=== PATIENT | male | born 1960 | race Caucasian/White ===

== ENCOUNTER 2017-05-19 12:50 | Observation (INO) | payer BC ==
[~2017-05-19 12:50] MED LIST: CLINDAMYCIN 900 MG in DEXTROSE 5% IN WATER 50 ML IVPB ONE; DEXAMETHASONE SOD PHOSPHATE 10 MG/ML 1 ML VIAL IV ONE; HYDROmorphone 1 MG/ML 1 ML SYRINGE IVP PRN; LIDOCAINE 1% 20 ML VIAL (10MG/ML) FOR IV START INTRADERMA PRN; MIDAZOLAM 2 MG/2 ML VIAL IV PRN; ONDANSETRON 4 MG/2 ML VIAL IVP ONE; SCOPOLAMINE 1.5MG/72HR PATCH TRANSDERM ONE
[2017-05-19] MEDS: LACTATED RINGERS 1,000 ML IV SCH ×2 (13:11→23:40)
[2017-05-19] MEDS ORDERED: HYDROcodone/APAP 5-325MG 1 EACH TAB PO PRN ×2 (14:00)
[2017-05-19] MEDS ORDERED: hydrOXYzine PAMOATE 25 MG CAP PO PRN ×2 (14:00)
[2017-05-19] MEDS ORDERED: HYDROmorphone 1 MG/ML 1 ML SYRINGE IVP PRN ×2 (14:00)
[2017-05-19] MEDS ORDERED: ONDANSETRON 4 MG/2 ML VIAL IVP PRN (14:00)
[2017-05-19] MEDS ORDERED: SENNOSIDES-DOCUSATE SODIUM 1 EACH TAB PO PRN (14:00)
[2017-05-19] MEDS ORDERED: SUCCINYLCHOLINE CHLORIDE 100 MG/5 ML SYR IV ONE (14:43)
[2017-05-19] MEDS ORDERED: LIDOCAINE 1% INJ 10MG/ML (20 ML MDV) ONE (14:43)
[2017-05-19] MEDS ORDERED: PROPOFOL 10 MG/ML 20 ML VIAL IV ONE (14:43)
[2017-05-19] MEDS ORDERED: KETOROLAC 30 MG/ML 1 ML VIAL ONE (14:43)
[2017-05-19] MEDS ORDERED: fentaNYL (PF) 50 MCG/ML 2 ML AMP ONE (14:43)
[2017-05-19] MEDS ORDERED: MIDAZOLAM 2 MG/2 ML VIAL ONE (14:43)
[2017-05-19] MEDS ORDERED: LACTATED RINGERS 1,000 ML IV ONE (16:38)
[2017-05-19 18:13] VITALS: BMI 27.2
[2017-05-19] MEDS: HYDROmorphone 1 MG/ML 1 ML SYRINGE IVP PRN ×3 (19:22→23:45)
[2017-05-19] MEDS ORDERED: HYDROcodone/APAP 7.5-325MG 1 EACH TAB PO PRN (21:42)
[2017-05-19] MEDS: CLINDAMYCIN 900 MG in DEXTROSE 5% IN WATER 50 ML IVPB SCH ×2 (23:36)
[2017-05-20] MEDS: HYDROcodone/APAP 7.5-325MG 1 EACH TAB PO PRN ×4 (00:44→14:35)
[2017-05-20 08:06] VITALS: PULSE 65; RESP 18
[2017-05-20] MEDS: CLINDAMYCIN 900 MG in DEXTROSE 5% IN WATER 50 ML IVPB SCH ×2 (08:06)
[2017-05-20 08:13] VITALS: BP 122/79; TEMP 98.2
--- NOTE | 2017-05-20 08:59 | P.DS ---
Providers Date of admission: 05/20/17 03:12 Expected date of discharge: 05/20/17 Attending physician: Ty Cleaning Primary care physician: [facility] Course: This is a 56-year-old male with known history of torn rotator cuff to the left shoulder. The patient presents for evaluation. After discussion and consideration patient elects to proceed with acromioplasty excision distal clavicle repair rotator cuff left shoulder. The patient is seen preoperatively by Hermila and cleared for surgery. Patient is admitted to [facility] on 05/20/2017 for acromioplasty excision distal clavicle repair rotator cuff left shoulder. The procedures performed without complication or sequelae. The patient is doing well postoperatively. Labs and vital signs are stable on day of discharge. On day of discharge patient's shoulder is healing well. There is minimal erythema. There is no drainage noted at this time. There is minimal soft tissue swelling to the shoulder. Patient has full hand and wrist motion without difficulty or pain. Neurovascular status to the left upper extremity. Patient is discharged home in good condition. Please see med rec for accurate list of home medications. Plan - Discharge Summary New Discharge Prescriptions: New HYDROcodone/APAP 7.5-325MG [[place] 7.5-325] 1 - 2 tab PO Q4-6H PRN #60 tab PRN Reason: Pain Sennosides-Docusate Sodium [Senokot-S] 1 tab PO BID #60 tablet Discharge Medication List HYDROcodone/APAP 7.5-325MG [[place] 7.5-325] 1 - 2 tab PO Q4-6H PRN #60 tab [Rx] Sennosides-Docusate Sodium [Senokot-S] 1 tab PO BID #60 tablet 05/20/17 [Rx] Follow up Appointment(s)/Referral(s): Ty Cleaning DO [Doctor of Osteopathic Medicine] - 10 Days Activity/Diet/Wound Care/Special Instructions: Maintain sling for comfort Discharge Disposition: HOME SELF-CARE
--- NOTE | 2017-05-22 13:50 | OP ---
DATE OF SURGERY: 05/19/2017 SURGEON: LIDYA VIEIRA DO STORAGE ADMINISTRATOR: NONE PREOPERATIVE DIAGNOSIS: Torn left rotator cuff. POSTOPERATIVE DIAGNOSIS: Torn left rotator cuff OPERATION: Resection of the distal left clavicle, decompression acromioplasty , left rotator cuff repair utilizing Arthrex bioabsorbable anchor. ANESTHESIA: ESTIMATED BLOOD LOSS: SPECIMENS REMOVED: COMPLICATIONS: DESCRIPTION OF PROCEDURE: The patient was taken to the operative suite and placed in supine position. General inhalation anesthesia was performed by the Department of Anesthesiology in the preoperative area. The patient was placed in beach chair position, padded and secured. Betadine prep was carried out over the left shoulder and sterile drapes applied in the usual manner. An anterolateral incision was carried out over the anterolateral border of the distal acromion. Sharp dissection through the subcutaneous tissue was performed. The superior clavicle ligament was identified and dissected. The distal 1 cm of the clavicle was excised with bone saw. The anterior deltoid muscle was dissected along the anterolateral border. Decompression acromioplasty was performed. A tear of the left rotator cuff was visualized. The acromial under surface od the acromion was smoothed with a bone awl. The Arthrex 5.5 anchor screw was then prepared with bone awl for positioning and the bone tapped. The final 5.5 screw is inserted and secured. Rotator cuff is repaired. The area was irrigated copiously. The deltoid was then reapproximated back into the acromion with #1 Ethibond suture. The deep fascia was approximated with #1 Vicryl suture. Subcutaneous tissue approximated with 2-0 Vicryl suture and 3-0 Quill suture in a subcuticular fashion. Dermabond was applied sealing the wound. Sterile dressings were applied. The patient was placed in an abductor pillow splint and transferred to the recovery room in satisfactory postop condition. GROSS PATHOLOGY: There is evidence of complete rupture with an acute appearance of the supraspinatus, infraspinatus tendon, rotator cuff tendon tear. [facility]
== END 2017-05-20 16:47 | disposition home or self-care (01) ==
LOC: OR 12:50 → 3SUR 16:08 → OR 05-20 03:12 → 3SUR 05-20 03:12
PROVIDERS: ADMIT Orthopaedic Surgery; ATTEND Orthopaedic Surgery
DX: M75.122 Complete rotator cuff tear or rupture of left shoulder, not specified as traumatic (principal); M75.42 Impingement syndrome of left shoulder; Z82.49 Family history of ischemic heart disease and other diseases of the circulatory system; Z88.0 Allergy status to penicillin
CPT/HCPCS: 23412; 23130; G0378; C1713; J2250; J1100; J2405; J2001; J3010; J1885; J1170; J0330; J2704

== ENCOUNTER → 2017-07-27 | Outpatient (CLI) | payer BC ==
[2017-07-27 17:46] LABS: CH 30.5; CHCM 33.7; HCT 46.3 % (39.0-53.0); HDW 2.72; HGB 15.3 gm/dL (13.0-17.5); MCV 90.9 fL (80.0-100.0); Mean Platelet Volume 6.8; RBC 5.09 m/uL (4.30-5.90); RDW 13.3 % (11.5-15.5); WBC 5.6 k/uL (3.8-10.6)
[2017-07-27 17:52] LABS: Rheumatoid Factor, Qnt <9 IU/mL (<12)
[2017-07-27 17:53] LABS: C Reactive Protein 13.3 mg/L (<10.0)
[2017-07-27 19:46] LABS: Erythrocyte Sedimentation Rate 25 mm/hr (0-15)
[2017-07-28 01:26] LABS: ANA w/Reflex to Titer NEGATIVE (NEGATIVE)
[2017-07-29 12:46] LABS: HLA B27 NEGATIVE; HLA B27 Comment SEEBELOW
[2017-07-30 14:08] LABS: Lyme IgG/IgM 0.1 Index; Lyme IgG/IgM Interp NEGATIVE (NEGATIVE)
== END | disposition home or self-care (01) ==
LOC: LABWHC1 16:51
PROVIDERS: ATTEND Orthopaedic Surgery
DX: Z48.89 Encounter for other specified surgical aftercare (principal); M65.88 Other synovitis and tenosynovitis, other site; M25.532 Pain in left wrist; M25.512 Pain in left shoulder; Z98.890 Other specified postprocedural states
CPT/HCPCS: 36415; 84443; 85027; 85652; 86038; 86060; 86140; 86431; 86618; 86812

== ENCOUNTER → 2017-08-18 | Outpatient (CLI) | payer BC ==
[2017-08-18 09:06] LABS: Blood Urea Nitrogen 11 mg/dL (9-20); Non-African American GFR(MDRD) >60 (>60 ml/min/1.73 sqM); Uric Acid 5.6 mg/dL (3.5-8.5)
== END | disposition home or self-care (01) ==
LOC: LABWHC1 07:43
PROVIDERS: ATTEND Orthopaedic Surgery
DX: Z48.89 Encounter for other specified surgical aftercare (principal); M25.512 Pain in left shoulder; M25.532 Pain in left wrist; M65.88 Other synovitis and tenosynovitis, other site; Z98.890 Other specified postprocedural states; M77.8 Other enthesopathies, not elsewhere classified
CPT/HCPCS: 36415; 82565; 84520; 84550

== ENCOUNTER → 2017-12-30 | Outpatient (CLI) | payer BC ==
--- NOTE | 2017-12-30 20:09 | EEG ---
ELECTROENCEPHALOGRAM REPORT REFERRING PHYSICIAN: Dr. Gonzalez. CONSULTING AND INTERPRETING PHYSICIAN: Dr. Rory Cash INDICATION FOR EXAMINATION: This patient is a 57-year-old male being evaluated for generalized fatigue and headaches in the occipital region. The patient also has remote history of recurrent syncope. AGE: 57. EEG FINDINGS: A routine 21-channel awake digital EEG recording was accomplished utilizing the 10-20 international system with bipolar and referential montages. The background activity in the most alert resting state consists of a low to medium amplitude, fairly well- developed and well-sustained 8 Hz activity over the posterior head regions. This posterior rhythm attenuates to eye opening. There is a small amount of low amplitude 18-20 Hz beta activity seen maximally over the anterior head regions. Muscle and movement artifact was observed on a few occasions during the tracing. Hyperventilation was not performed. Photic stimulation at flash frequencies of 2-30 Hz produced a good symmetrical occipital driving response. No epileptiform discharges were seen. IMPRESSION: This EEG is normal for the patient's age. The EEG failed to reveal any focal, lateralized or epileptiform abnormalities. Clinical correlation is recommended. MMODL / IJN: [id number] /
== END ==
LOC: NEUROMAIN 12:57
PROVIDERS: ATTEND Internal Medicine
DX: R55 Syncope and collapse (principal)
CPT/HCPCS: 95816

== ENCOUNTER → 2018-01-27 | Outpatient (CLI) | payer BC ==
--- NOTE | 2018-01-28 10:43 | NM ---
EXAMINATION TYPE: NM hepatobiliary w EF DATE OF EXAM: 01/27/2018 COMPARISON: Ultrasound dated 10/25/2017 HISTORY: Left-sided abdominal pain with disease of the biliary tract. TECHNIQUE: After the intravenous administration of 5.2 mCi Tc 99m Mebrofenin hepatobiliary scintigrap hy is performed. Immediate images post injection. FINDINGS: There is satisfactory initial accumulation of tracer by the liver. The gallbladder is visualized wit hin 10 minutes. The small bowel activity is noted within 42 minutes. At one hour 8 ounces of oral e nsure plus is given to mimic CCK and gallbladder ejection fraction is calculated at 70 %, in the norm al range. Therefore there is no scintigraphic evidence of cystic or common bile duct obstruction to suggest acute cholecystitis or gallbladder dyskinesia. Enterogastric reflux is incidentally noted on the delayed image demonstrating the ejection fraction. IMPRESSION: 1. No scintigraphic findings of acute cholecystitis, chronic cholecystitis, or biliary dyskinesia. 2. Enterogastric reflux on a single image, which could account for the patient's abdominal pain.
== END | disposition home or self-care (01) ==
LOC: RADNMMAIN 14:45
PROVIDERS: ATTEND Internal Medicine
DX: K83.9 Disease of biliary tract, unspecified (principal)
CPT/HCPCS: 78226; A9537

== ENCOUNTER → 2018-02-01 | Outpatient (CLI) | payer BC ==
--- NOTE | 2018-02-01 18:29 | CT ---
EXAMINATION TYPE: CT abdomen w con DATE OF EXAM: 02/01/2018 COMPARISON: NONE HISTORY: Abdominal pain, elevated pancreatic levels. CT DLP: 1166 mGycm Automated exposure control for dose reduction was used. TECHNIQUE: Helical acquisition of images was performed from the lung bases through the top of iliac crest to include entire abdomen. CONTRAST: Performed with Oral Contrast and with IV Contrast, patient injected with 100 mL of Omnipaque 300. FINDINGS: The lung bases are clear. There is no pleural effusion. Heart size is normal. There is no pericardial effusion. Liver and spleen appear normal. Bile ducts are not dilated. Gallbladder appears normal. Pancreas appe ars normal. Pancreatic duct appears normal. There is no adrenal mass. Kidneys show satisfactory contrast opacification. There is no hydronephrosi s. Ureters are not dilated. There is no retroperitoneal adenopathy. I see no intestinal wall thickeni ng. There are no dilated loops. Appendix appears normal. I see no bony destructive process. Lumbar sp ine is intact. There is ankylotic change in the lower thoracic spine. Sacroiliac joints are intact. T here is no sign of free air. There is no sign of ascites. IMPRESSION: NEGATIVE CT SCAN OF THE ABDOMEN. NO EVIDENCE OF PANCREATIC ABNORMALITY. THERE IS SOME ANKYLOTIC CHANGE IN THE LOWER THORACIC SPINE AT MAY RELATE TO ANKYLOSING SPONDYLITIS.
== END | disposition home or self-care (01) ==
LOC: RADCTMAIN 15:51
PROVIDERS: ATTEND Internal Medicine Rheumatology
DX: K85.90 Acute pancreatitis without necrosis or infection, unspecified (principal)
CPT/HCPCS: 74160; Q9967

== ENCOUNTER → 2018-05-10 | Outpatient (CLI) | payer BC ==
[2018-05-10 16:40] LABS: Anion Gap 11 mmol/L; Blood Urea Nitrogen 13 mg/dL (9-20); Carbon Dioxide 30 mmol/L (22-30); Chloride 100 mmol/L (98-107); Potassium 4.5 mmol/L (3.5-5.1); Sodium 141 mmol/L (137-145)
[2018-05-10 16:52] LABS: HCT 42.8 % (39.0-53.0); HGB 14.6 gm/dL (13.0-17.5); Mean Platelet Volume 6.8; Platelet Count 236 k/uL (150-450); WBC 4.9 k/uL (3.8-10.6)
== END | disposition home or self-care (01) ==
LOC: LABPAT 15:48
PROVIDERS: ATTEND Internal Medicine Cardiovascular Disease
DX: Z01.812 Encounter for preprocedural laboratory examination (principal); R07.9 Chest pain, unspecified
CPT/HCPCS: 36415; 80051; 82565; 84520; 85027

== ENCOUNTER 2018-05-12 07:46 | Day surgery (SDC) | payer BC ==
[2018-05-10 15:11] VITALS: BMI 26.9
[~2018-05-12 07:46] MED LIST changes: +ALPRAZolam 0.25 MG TAB PO PRN; +ALPRAZolam 0.5 MG TAB PO PRN; +ASPIRIN 325 MG TAB PO STA; +ATORVASTATIN 80 MG TAB PO STA; -CLINDAMYCIN 900 MG in DEXTROSE 5% IN WATER 50 ML IVPB ONE; -DEXAMETHASONE SOD PHOSPHATE 10 MG/ML 1 ML VIAL IV ONE; -HYDROmorphone 1 MG/ML 1 ML SYRINGE IVP PRN; -LIDOCAINE 1% 20 ML VIAL (10MG/ML) FOR IV START INTRADERMA PRN; -MIDAZOLAM 2 MG/2 ML VIAL IV PRN; +NITROGLYCERIN SL TABS 0.4 MG TAB SUBLINGUAL PRN; -ONDANSETRON 4 MG/2 ML VIAL IVP ONE; -SCOPOLAMINE 1.5MG/72HR PATCH TRANSDERM ONE; +SODIUM CHLORIDE 0.9% 1,000 ML in EMPTY BAG 1 BAG IV ONE
[2018-05-12 08:41] VITALS: RESP 16; TEMP 97.8
[2018-05-12] MEDS ORDERED: SODIUM CHLORIDE 0.9% 1,000 ML IV ONE (08:42)
[2018-05-12] MEDS ORDERED: VERAPAMIL 2.5 MG/ML 2 ML AMP ONE (08:48)
[2018-05-12] MEDS ORDERED: MIDAZOLAM 2 MG/2 ML VIAL ONE (08:48)
[2018-05-12] MEDS ORDERED: HEPARIN SODIUM 1,000 UN/ML (10ML VL) ONE (08:48)
[2018-05-12] MEDS ORDERED: fentaNYL (PF) 50 MCG/ML 2 ML AMP ONE (08:48)
[2018-05-12] MEDS ORDERED: MIDAZOLAM 2 MG/2 ML VIAL IVP ONE (09:10)
[2018-05-12] MEDS ORDERED: fentaNYL (PF) 50 MCG/ML 2 ML AMP IV ONE (09:10)
[2018-05-12] MEDS ORDERED: LIDOCAINE 2% INJ 20 MG/ML SQ ONE (09:15)
[2018-05-12] MEDS: VERAPAMIL SYRINGE (5 MG/10 ML) INTRAARTER ONE ×2 (09:16→09:38)
[2018-05-12] MEDS ORDERED: VERAPAMIL SYRINGE (5 MG/10 ML) INTRAARTER ONE (09:18)
[2018-05-12] MEDS ORDERED: HEPARIN SODIUM 1,000 UN/ML (10ML VL) IV ONE (09:19)
[2018-05-12] MEDS ORDERED: IOPAMIDOL-370 125ML BTL INJ ONE (09:29)
[2018-05-12] MEDS ORDERED: RX INFO: IV CONTRAST WAS GIVEN 1 EACH MISC MISCELLANE PRN (09:38)
[2018-05-12] MEDS ORDERED: SODIUM CHLORIDE 0.9% 1,000 ML IV SCH (09:45)
--- NOTE | 2018-05-12 09:52 | P.CARDCATH ---
Date of Procedure: 05/12/18 Preoperative Diagnosis: Chest pain and positive stress test Postoperative Diagnosis: Normal coronary arteries Description of Procedure: HISTORY: His is a 57-year-old gentleman who has been having recurrent chest pains. Patient admitted to a stress test which showed a reversible defect involving the anterolateral segments. Patient is advised to have a cardiac cath for definitive diagnosis. Patient was referred by Dr. Molina. CONSENT:I have discussed the risks, benefits and alternative therapies for the above-mentioned procedure and for both sedation/analgesia as well as necessary blood product administration, if indicated, as they pertain to this patient. The patient has indicated understanding and acceptance of the risks and procedures discussed. PROCEDURE: Patient was brought to the lab in a fasting state. Patient was given some IV sedation. The right Wrist is infiltrated with lidocaine and right Radial artery was entered using Seldinger technique. A 6-Slovak catheter was left in place and selective coronary arteriography was performed. Patient tolerated the procedure well. TR band was applied for hemostasis. No immediate complications were noted and patient was transferred to [facility] in a stable condition Conscious Sedation: Versed 1mg Fentanyl 50 g Duration 21minutes HEMODYNAMICS: The aortic pressure was about 95/60. Left ankle end-diastolic pressure was 12. There was no gradient across the aortic valve. SELECTIVE CORONARY ARTERIOGRAPHY: LEFT MAIN: Normal length and patent THE LEFT ANTERIOR DESCENDING CORONARY ARTERY: This is a moderate caliber vessel which becomes small in caliber in the distal distribution. Use rise to good-sized diagonal branch. The LAD and branches are free of occlusive disease THE LEFT CIRCUMFLEX AND IS CORONARY ARTERY: This is a moderate caliber vessel giving rise good-sized OM branch. The circumflex coronary artery and branches are free of any occlusive disease. THE RIGHT CORONARY ARTERY: This is a dominant vessel giving rise to good-sized PDA and small PLV branch. The right coronary artery and branches are free of occlusive disease. LEFT VENTRICULOGRAPHY: Not performed FINAL IMPRESSION: #1. Normal coronary arteries #2. Mildly elevated end- diastolic pressure PLAN: Maximum medical therapy and this factor modification PROGNOSIS: Good
[2018-05-12 12:26] VITALS: PULSE 56
[2018-05-12 13:39] VITALS: BP 99/64
== END 2018-05-12 13:56 | disposition home or self-care (01) ==
LOC: CATHCVL 07:46
PROVIDERS: ATTEND Internal Medicine Cardiovascular Disease
DX: Z79.82 Long term (current) use of aspirin (principal); Z79.899 Other long term (current) drug therapy; Z88.0 Allergy status to penicillin
CPT/HCPCS: 93458; C1894; C1769; J2001; J2250; J3010; J1644; Q9967

== ENCOUNTER → 2019-11-14 | Outpatient (CLI) | payer BC ==
--- NOTE | 2019-11-14 11:11 | XR ---
EXAMINATION TYPE: XR chest 2V DATE OF EXAM: 11/14/2019 COMPARISON: Chest x-ray October 24, 2017. HISTORY: Cough for 10 days. TECHNIQUE: Frontal and lateral views of the chest are obtained. FINDINGS: There is no focal air space opacity, pleural effusion, or pneumothorax seen. The cardiac silhouette size is within normal limits. Multilevel spurring in the thoracic spine is present. IMPRESSION: No suspicious acute infiltrate.
== END | disposition home or self-care (01) ==
LOC: RADXRMAIN 10:40
PROVIDERS: ATTEND Internal Medicine
DX: R05 Cough (principal)
CPT/HCPCS: 71046

== ENCOUNTER 2022-07-22 18:38 | Inpatient (IN) | payer BC ==
[2022-07-22] MEDS ORDERED: SODIUM CHLORIDE 0.9% 1,000 ML IV STA (19:11)
[2022-07-22] MEDS ORDERED: LIDOCAINE 5% PATCH TOPICAL STA (19:11)
[2022-07-22] MEDS ORDERED: MORPHINE SULFATE 4 MG/ML SYRINGE IV STA (19:11)
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
--- NOTE | 2022-07-22 19:29 | XR ---
EXAMINATION TYPE: XR chest 1V portable DATE OF EXAM: 07/22/2022 COMPARISON: 11/14/2019 HISTORY: Rib pain TECHNIQUE: Single view FINDINGS: Heart is normal. Lungs are clear of infiltrate. No heart failure. There are no hilar masses . There is likely fracture of the right lateral eighth rib. IMPRESSION: No active cardiopulmonary disease. There appears to be an acute fracture right eighth rib . Right seventh rib could also be fractured. No pneumothorax.
[2022-07-22 21:00] LABS: Basophils # (A) 0.1 k/uL (0-0.2); Basophils % (A) 0 %; Eosinophils # (A) 0.1 k/uL (0-0.7); Eosinophils % (A) 1 %; HCT 46.6 % (39.0-53.0); HGB 15.1 gm/dL (13.0-17.5); Lymphocytes # (A) 0.7 k/uL (1.0-4.8); Lymphocytes % (A) 6 %; MCH 30.7 pg (25.0-35.0); MCHC 32.5 g/dL (31.0-37.0); MCV 94.4 fL (80.0-100.0); Mean Platelet Volume 7.7; Monocytes # (A) 0.7 k/uL (0-1.0); Monocytes % (A) 5 %; Neutrophils # (A) 11.3 k/uL (1.3-7.7); Neutrophils % (A) 87 %; Platelet Count 293 k/uL (150-450); RBC 4.93 m/uL (4.30-5.90); RDW 12.8 % (11.5-15.5); WBC 12.9 k/uL (3.8-10.6)
[2022-07-22 21:09] LABS: ALT 45 U/L (4-49); AST 91 U/L (17-59); African American GFR (CKD) >90 (>60 ml/min/1.73 sqM); Albumin 5.2 g/dL (3.5-5.0); Alkaline Phosphatase 126 U/L (38-126); Anion Gap 16 mmol/L; Blood Urea Nitrogen 10 mg/dL (9-20); Calcium 9.7 mg/dL (8.4-10.2); Carbon Dioxide 20 mmol/L (22-30); Chloride 101 mmol/L (98-107); Glucose 119 mg/dL (74-99); Non-African American GFR(CKD) >90 (>60 ml/min/1.73 sqM); Sodium 137 mmol/L (137-145); Total Bilirubin 1.6 mg/dL (0.2-1.3); Total Protein 8.9 g/dL (6.3-8.2)
[2022-07-22 21:17] LABS: Lipase 3771 U/L (23-300)
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
[2022-07-22] MEDS ORDERED: MORPHINE SULFATE 4 MG/ML SYRINGE IV PRN (23:14)
[2022-07-22] MEDS ORDERED: NALOXONE 0.4 MG/ML 1 ML VIAL IV PRN ×2 (23:14→23:15)
[2022-07-22] MEDS ORDERED: ONDANSETRON 4 MG/2 ML VIAL IVP PRN (23:14)
[2022-07-22] MEDS ORDERED: ACETAMINOPHEN TAB 325 MG TAB PO PRN (23:14)
[2022-07-23] MEDS: methocarbamoL 500 MG TAB PO PRN ×2 (02:06→10:38)
[2022-07-23] MEDS: SODIUM CHLORIDE 0.9% 1,000 ML IV SCH ×3 (02:07→19:17)
[2022-07-23 02:31] LABS: Glucose,Whole Blood 118 mg/dL (70-110)
--- NOTE | 2022-07-23 06:57 | XR ---
EXAMINATION TYPE: XR chest 1V portable DATE OF EXAM: 07/23/2022 CLINICAL HISTORY: Chest pain. TECHNIQUE: Single AP portable upright view of the chest is obtained. COMPARISON: CT chest abdomen pelvis and chest x-ray from one day earlier FINDINGS: Diminished inspiration with bibasilar opacities on current study. Cardiac silhouette size but upper limits of normal. Slightly displaced fracture of the right lateral eighth rib noted confirm ed on recent CT axial image 52. IMPRESSION: Diminished inspiration with new bibasilar opacities favoring atelectasis over developing infiltrate.
[2022-07-23 07:03] LABS: Glucose,Whole Blood 123 mg/dL (70-110)
[2022-07-23 07:37] LABS: Basophils % (A) 0 %; Eosinophils % (A) 0 %; HCT 42.2 % (39.0-53.0); HGB 13.4 gm/dL (13.0-17.5); Lymphocytes # (A) 1.1 k/uL (1.0-4.8); Lymphocytes % (A) 14 %; MCH 30.3 pg (25.0-35.0); MCHC 31.7 g/dL (31.0-37.0); MCV 95.7 fL (80.0-100.0); Monocytes # (A) 0.7 k/uL (0-1.0); Monocytes % (A) 10 %; Neutrophils # (A) 5.4 k/uL (1.3-7.7); Neutrophils % (A) 74 %; Platelet Count 241 k/uL (150-450); RBC 4.41 m/uL (4.30-5.90); RDW 12.8 % (11.5-15.5); WBC 7.4 k/uL (3.8-10.6)
[2022-07-23 07:57] LABS: ALT 35 U/L (4-49); AST 41 U/L (17-59); African American GFR (CKD) >90 (>60 ml/min/1.73 sqM); Albumin/Globulin Ratio 1.4; Alkaline Phosphatase 90 U/L (38-126); Anion Gap 10 mmol/L; Blood Urea Nitrogen 9 mg/dL (9-20); Calcium 8.6 mg/dL (8.4-10.2); Carbon Dioxide 25 mmol/L (22-30); Chloride 103 mmol/L (98-107); Globulin 2.8 g/dL; Glucose 104 mg/dL (74-99); Lipase 566 U/L (23-300); Non-African American GFR(CKD) >90 (>60 ml/min/1.73 sqM); Potassium 4.2 mmol/L (3.5-5.1); Sodium 138 mmol/L (137-145); Total Bilirubin 0.7 mg/dL (0.2-1.3); Total Protein 6.8 g/dL (6.3-8.2)
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
[2022-07-23] MEDS: ACETAMINOPHEN IV (For NPO) 1,000 MG in EMPTY BAG 1 BAG IVPB SCH ×3 (09:20→17:58)
[2022-07-23] MEDS: ENOXAPARIN 40 MG/0.4 ML SYRINGE SQ SCH (09:21)
[2022-07-23] MEDS: KETOROLAC 15 MG/ML 1 ML VIAL IVP SCH ×3 (09:21→17:59)
[2022-07-23] MEDS: PANTOPRAZOLE 40 MG/10 ML VIAL IVP SCH (09:21)
[2022-07-23] MEDS: MAGNESIUM OXIDE 400 MG TAB PO SCH (12:40)
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
[2022-07-23] MEDS: HYDROcodone/APAP 5-325MG 1 EACH TAB PO PRN ×2 (15:12→21:43)
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
[2022-07-23 16:46] LABS: Glucose,Whole Blood 116 mg/dL (70-110)
--- NOTE | 2022-07-23 17:18 | XR ---
Result: Clinical History: Pain. Comparison: None available. Technique: 3 views of the right shoulder. Findings: The bone mineralization is appropriate for age. No acute fracture or dislocation is seen. There is mild osteoarthritis of the acromioclavicular joint . There is subtle minimal calcification adjacent to the greater tuberosity and may represent calcific tendinopathy versus mild chondrocalcinosis. The visualized lung is clear. Impression: No acute osseous abnormality. Incidental finding as above.
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
[2022-07-23] MEDS: metFORMIN 500 MG TAB PO SCH (17:59)
[2022-07-23] MEDS: SENNOSIDES-DOCUSATE SODIUM 1 EACH TAB PO SCH (19:46)
[2022-07-23 20:18] LABS: Glucose,Whole Blood 102 mg/dL (70-110)
[2022-07-23] MEDS ORDERED: LIDOCAINE 5% PATCH TOPICAL SCH (20:30)
[2022-07-23] MEDS ORDERED: ATORVASTATIN 20 MG TAB PO SCH (21:00)
--- NOTE | 2022-07-23 21:00 | P.PN ---
Progress Note - Text Progress Note Date: 07/23/22 Patient reevaluation at this evening. He reports his pain is well-controlled. He has combination nonnarcotic management including occasional Marcus. Patient has been seen by multiple consultants including orthopedic and pain management. He has tolerated diet. No reports of abdominal pain. He has incentive spirometer for pulmonary toilet. Overall, disposition 24 hours pending clearance from multiple consultants. Patient agreeable with care plan.
[2022-07-24] MEDS: KETOROLAC 15 MG/ML 1 ML VIAL IVP SCH ×4 (00:07→13:00)
[2022-07-24] MEDS: ACETAMINOPHEN IV (For NPO) 1,000 MG in EMPTY BAG 1 BAG IVPB SCH (00:07)
[2022-07-24] MEDS: SODIUM CHLORIDE 0.9% 1,000 ML IV SCH ×2 (00:08→07:15)
[2022-07-24] MEDS: HYDROcodone/APAP 5-325MG 1 EACH TAB PO PRN ×3 (04:08→16:25)
[2022-07-24 07:12] LABS: Glucose,Whole Blood 93 mg/dL (70-110)
[2022-07-24 07:21] VITALS: RESP 17
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
[2022-07-24 09:00] LABS: Basophils # (A) 0.03 X 10*3/uL (0.00-0.10); Basophils % (A) 0.7 %; Eosinophils # (A) 0.21 X 10*3/uL (0.04-0.35); Eosinophils % (A) 4.6 %; HCT 36.8 % (39.6-50.0); Immature Grans, Automated 0.2 %; Lymphocytes # (A) 1.05 X 10*3/uL (0.90-5.00); Lymphocytes % (A) 22.8 %; MCH 30.8 pg (27.0-32.0); MCHC 32.6 g/dL (32.0-37.0); MCV 94.6 fL (80.0-97.0); Mean Platelet Volume 10.3 fL (9.5-12.2); Monocytes # (A) 0.64 X 10*3/uL (0.20-1.00); Monocytes % (A) 13.9 %; NRBC Per 100 WBC 0 /100 WBCS (0.0-0.0); Neutrophils # (A) 2.66 X 10*3/uL (1.80-7.70); Neutrophils % (A) 57.8 %; Platelet Count 211 X 10*3/uL (140-440); RBC 3.89 X 10*6/uL (4.40-5.60); RDW 13.3 % (11.5-14.5)
[2022-07-24] MEDS ORDERED: METOPROLOL TARTRATE 12.5 MG TAB PO SCH (09:00)
[2022-07-24] MEDS ORDERED: polyethylene glycoL 3350 17 GM POWD.PACK PO SCH (09:00)
[2022-07-24 09:26] LABS: African American GFR (CKD) 92.4 (60.0-200.0); Albumin 3.9 g/dL (3.8-4.9); Albumin/Globulin Ratio 1.77 (1.60-3.17); Anion Gap 6.8 mmol/L (10.00-18.00); BUN/Creat Ratio 10.9 Ratio (12.00-20.00); Blood Urea Nitrogen 10.9 mg/dL (9.0-27.0); Calcium 8.7 mg/dL (8.7-10.3); Carbon Dioxide 27.2 mmol/L (20.0-27.5); Globulin 2.2 g/dL (1.6-3.3); Non-African American GFR(CKD) 79.7 (60.0-200.0); Potassium 4.6 mmol/L (3.5-5.5); Total Bilirubin 0.5 mg/dL (0.30-1.20); Total Protein 6.1 g/dL (6.2-8.2)
[2022-07-24] MEDS: metFORMIN 500 MG TAB PO SCH (10:17)
[2022-07-24] MEDS: SENNOSIDES-DOCUSATE SODIUM 1 EACH TAB PO SCH (10:17)
[2022-07-24] MEDS: ENOXAPARIN 40 MG/0.4 ML SYRINGE SQ SCH (10:18)
[2022-07-24] MEDS: MAGNESIUM OXIDE 400 MG TAB PO SCH (10:18)
[2022-07-24] MEDS: PANTOPRAZOLE 40 MG/10 ML VIAL IVP SCH (10:19)
[2022-07-24] MEDS: methocarbamoL 500 MG TAB PO PRN ×2 (10:56→16:45)
[2022-07-24 12:12] LABS: Glucose,Whole Blood 113 mg/dL (70-110)
[2022-07-24 13:27] VITALS: PULSE 66
[2022-07-24 13:30] VITALS: BP 105/69; TEMP 98.1
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
[2022-07-25] MEDS ORDERED: PANTOPRAZOLE 40 MG TABLET PO SCH (07:30)
[2022-07-29] MEDS ORDERED: CYANOCOBALAMIN 500 MCG TAB PO SCH (09:00)
== END 2022-07-24 17:37 | disposition home or self-care (01) | DRG 183 ==
LOC: EC 18:38 → 4SSUR 23:14
PROVIDERS: ADMIT Surgery Plastic and Reconstructive Surgery; ATTEND Surgery Plastic and Reconstructive Surgery
DX: S22.41XA Multiple fractures of ribs, right side, initial encounter for closed fracture (principal); K85.80 Other acute pancreatitis without necrosis or infection; J98.11 Atelectasis; M54.50 Low back pain, unspecified; R74.8 Abnormal levels of other serum enzymes; E87.5 Hyperkalemia; E11.9 Type 2 diabetes mellitus without complications; V86.56XA Driver of dirt bike or motor/cross bike injured in nontraffic accident, initial encounter; E11.649 Type 2 diabetes mellitus with hypoglycemia without coma; M62.830 Muscle spasm of back; E78.2 Mixed hyperlipidemia; I10 Essential (primary) hypertension; L30.9 Dermatitis, unspecified; M19.019 Primary osteoarthritis, unspecified shoulder; M47.812 Spondylosis without myelopathy or radiculopathy, cervical region; M47.816 Spondylosis without myelopathy or radiculopathy, lumbar region; M51.36 Other intervertebral disc degeneration, lumbar region; N40.0 Benign prostatic hyperplasia without lower urinary tract symptoms; Y93.55 Activity, bike riding; Z63.72 Alcoholism and drug addiction in family; Z79.84 Long term (current) use of oral hypoglycemic drugs; Z79.82 Long term (current) use of aspirin; Z79.899 Other long term (current) drug therapy; Z88.0 Allergy status to penicillin; Z91.030 Bee allergy status
CPT/HCPCS: 36415; 70450; 71045; 71260; 72125; 74177; 80053; 83605; 83690; 85025; 93005; 96361; 96374; 99285

== ENCOUNTER → 2023-11-18 | Outpatient (CLI) | payer BC ==
--- NOTE | 2023-11-19 14:19 | MR ---
EXAMINATION TYPE: MR iac wo/w con DATE OF EXAM: 11/18/2023 COMPARISON: None HISTORY: Hyperacusis left ear, ringing in ears CONTRAST: Performed utilizing 8.5 mL intravenous Gadavist gadolinium contrast. TECHNIQUE: Multiplanar, multiecho imaging on a 3.0 Batsheva magnet is performed through the brain. Atte ntion is paid to the internal auditory canals with thin section imaging. Postcontrast imaging is per formed through the internal auditory canals. FINDINGS:Craniovertebral junction is normal. The pituitary is normal. Diffusion-weighted imaging is performed. No suspicious hyperintensity is present to suggest an acute intracranial infarct or acute ischemic area. There are couple of punctate deep white matter changes which are nonspecific but can be related to mi crovascular ischemic change. Differential diagnosis would include vasculitis, migraine headaches, Lym e disease, multiple sclerosis. Thin section imaging is performed through the internal auditory canals and cerebellar pontine angles. No cerebellar pontine angle masses are evident. The internal auditory canals appear normal without expansion or erosion. Postcontrast imaging was performed. No suspicious enhancement is evident within the internal audito ry canals or the included portions of the brain. IMPRESSION: 1. Normal internal auditory canals. No suspicious abnormality to account for left Hyperacusis. 2. Few scattered punctate white matter changes are nonspecific but can be related to chronic white ma tter ischemic change.
== END | disposition home or self-care (01) ==
LOC: RADMRIMAIN 13:58
PROVIDERS: ATTEND Otolaryngology
DX: H93.232 Hyperacusis, left ear (principal); R90.82 White matter disease, unspecified
CPT/HCPCS: 70553; A9585

== ENCOUNTER 2025-02-20 22:23 | Emergency (ER) | payer MEDICARE, BC ==
[2025-02-20 23:11] LABS: Basophils # (A) 0.1 k/uL (0-0.2); Basophils % (A) 1 %; Eosinophils # (A) 0.1 k/uL (0-0.7); Eosinophils % (A) 2 %; HCT 43.6 % (39.0-53.0); HGB 14.2 gm/dL (13.0-17.5); Lymphocytes # (A) 0.9 k/uL (1.0-4.8); Lymphocytes % (A) 16 %; MCHC 32.7 g/dL (31.0-37.0); MCV 94.7 fL (80.0-100.0); Mean Platelet Volume 8.2; Monocytes # (A) 0.4 k/uL (0-1.0); Monocytes % (A) 8 %; Neutrophils # (A) 3.9 k/uL (1.3-7.7); Neutrophils % (A) 71 %; Platelet Count 263 k/uL (150-450); RDW 12.9 % (11.5-15.5); WBC 5.6 k/uL (3.8-10.6)
[2025-02-20 23:23] LABS: ALT 55 U/L (4-49); AST 38 U/L (17-59); African American GFR (CKD) 81 (>60 ml/min/1.73 sqM); Albumin 4.2 g/dL (3.5-5.0); Alkaline Phosphatase 86 U/L (38-126); Anion Gap 9 mmol/L; Blood Urea Nitrogen 15 mg/dL (9-20); Calcium 9.3 mg/dL (8.4-10.2); Carbon Dioxide 29 mmol/L (22-30); Chloride 99 mmol/L (98-107); Glucose 132 mg/dL (74-99); Non-African American GFR(CKD) 70 (>60 ml/min/1.73 sqM); Potassium 4.3 mmol/L (3.5-5.1); Sodium 137 mmol/L (137-145); Total Bilirubin 0.6 mg/dL (0.2-1.3)
[2025-02-20 23:48] LABS: INR 1.1 (<1.2); Partial Thromboplastin Time 24.5 sec (22.0-30.0); Prothrombin Time 11.5 sec (10.0-12.5)
--- NOTE | 2025-02-20 23:56 | ED ---
General Adult HPI - General Chief complaint: Dizziness Stated complaint: Low Heart Rate,Dizziness Time Seen by Provider: 02/20/25 23:17 Source: patient Mode of arrival: ambulatory Limitations: no limitations - History of Present Illness Initial comments: Patient is a 64 y/o male hx DM presenting today for dizziness. States first noticed dizziness this afternoon and worsens with head movements and when he puts his head between his knees and then brins his head up again. Endorses nausea but not emesis. This evening checked his HR and noted it to be 46 bpm. He states his heart rate usually runs between 50-60s. Denies headache, changes in vision, numbness, weakness, slurred speech, chest pain, difficulty in breathing, recent illness, fevers, vomiting, diarrhea, melena, hematochezia. Patient's daughter is a nurse practitioner and advised pt to come to the ED since his heart rate could drop further while he is sleeping. - Related Data Home Medications Medication Instructions Recorded Confirmed Multivitamins, Thera [Multivitamin 1 tab PO DAILY 05/10/18 07/22/22 (formulary)] Atorvastatin Calcium 20 mg PO HS 07/22/22 07/22/22 Cyanocobalamin (Vitamin B-12) 1,000 mcg PO WE 07/22/22 07/22/22 [Vitamin B-12] Metoprolol (Unknown Dose) 1 dose PO DAILY PRN 07/22/22 07/22/22 metFORMIN HCL 1,000 mg PO BID 07/22/22 07/22/22 Previous Rx's Medication Instructions Recorded Acetaminophen Tab [Tylenol Tab] 1,000 mg PO Q6HR PRN #30 tablet 07/23/22 Ibuprofen [Motrin] 600 mg PO Q8HR PRN #30 tab 07/23/22 Lidocaine 5% Patch [Lidoderm 5% 1 patch TOPICAL DAILY@2030 #20 07/23/22 Patch] patch Magnesium Oxide [Mag-Ox] 400 mg PO DAILY #20 tab 07/23/22 methocarbamoL [Robaxin] 500 mg PO QID PRN #60 tab 07/23/22 Meclizine [Antivert] 25 mg PO TID #20 tab 02/21/25 Allergies Allergy/AdvReac Type Severity Reaction Status Date / Time Penicillins Allergy Swelling, Verified 02/20/25 22:34 rash, hives venom-honey bee Allergy Anaphylaxis Verified 02/20/25 22:34 [bee venom (honey bee)] Review of Systems ROS Statement: Those systems with pertinent positive or pertinent negative responses have been documented in the HPI. ROS Other: All systems not noted in ROS Statement are negative. Past Medical History Past Medical History: Diabetes Mellitus Additional Past Medical History / Comment(s): See Ryanne's H&P,elevated blood sugar in the AMs,Syncope 9 years ago History of Any Multi-Drug Resistant Organisms: None Reported Past Surgical History: Orthopedic Surgery Additional Past Surgical History / Comment(s): ARTHROSCOPY ACL LEFT KNEE, LEFT ANKLE ORIF, ORIF RIGHT TIB/FIB, RIGHT WRIST ORIF,LT SHOULDER. Past Anesthesia/Blood Transfusion Reactions: No Reported Reaction Past Psychological History: No Psychological Hx Reported Smoking Status: Never smoker Past Alcohol Use History: None Reported Past Drug Use History: None Reported - Past Family History Mother Family Medical History: Cancer Additional Family Medical History / Comment(s): breast cancer. Father Family Medical History: No Reported History Additional Family Medical History / Comment(s): Mother had history of diabetes. Brother(s) Additional Family Medical History / Comment(s): Patient has 1 brother with no major medical problems. Patient has one sister that has had her gallbladder out. Patient has children with no major medical problems. General Exam - General Exam Comments Initial Comments: PE: CONSTITUTIONAL: No apparent distress, well appearing SKIN: Warm, dry, no jaundice, hives or petechiae EYES: Pupils are equally round, extraocular movements intact, clear conjunctiva, non-icteric sclera, fatigable horizontal leftward nystagmus HENT: Normocephalic, atraumatic, moist mucus membranes, oropharynx clear without exudates, tympanic membranes are nonerythematous, pearly ash NECK: , Full range of motion, normal appearance PULMONARY: Clear to auscultation without wheezes, rhonchi, or rales, normal excursion, no accessory muscle use and no stridor CARDIOVASCULAR: Regular rate, rhythm, normal S1 and S2. No appreciated murmurs, rubs or gallops. Strong radial pulses with intact distal perfusion. No lower extremity edema GASTROINTESTINAL: Soft, active bowel sounds throughout, non-tender, non- distended, no palpable masses, no rebound or guarding. No hepatosplenomegaly MUSCULOSKELETAL: Extremities have no gross deformity, no edema, redness, or swelling. NEUROLOGIC:_a/o x 3, GCS 15, normal mentation and speech. Moves all extremities x 4 without motor or sensory deficit, cranial nerves: II (visual pisano without defects), III, IV and (extraocular movements are intact, pupils are equal with normal reaction to light), V (intact facial sensation and jaw opening), VII (no facial droop), IX and X (normal palate movement, midline uvula, normal voice), XI (symmetrical shoulder shrug and lateral head rotation against resistance), XII (midline tongue protrusion). Motor strength is 5/5 in all extremities. No abnormal movements. Normal muscle tone. Sensation to light touch is intact bilaterally. No cerebellar signs (ynhufo-ed-dnna, qjfu-im-ykvr, and rapid alternating movements are normal) no truncal instability, PSYCHIATRIC:_normal mood and affect, thought process is clear and linear Limitations: no limitations Course Vital Signs 02/20/25 02/20/25 02/20/25 22:27 22:40 22:56 Temperature 98 F Pulse Rate 51 L 52 L 50 L Respiratory 18 16 18 Rate Blood Pressure 130/79 131/74 123/77 O2 Sat by Pulse 99 99 99 Oximetry 02/20/25 02/20/25 02/21/25 23:00 23:06 00:55 Temperature Pulse Rate 52 L 50 L 47 L Respiratory 16 16 18 Rate Blood Pressure 115/82 119/76 111/72 O2 Sat by Pulse 99 97 97 Oximetry 02/21/25 02/21/25 01:17 03:14 Temperature 97.7 F Pulse Rate 62 55 L Respiratory 16 18 Rate Blood Pressure 116/72 111/73 O2 Sat by Pulse 98 98 Oximetry EKG Findings - EKG Comments: EKG Findings:: EKG #1, performed at 2249, rate 48 bpm, sinus bradycardia, normal intervals, normal axis, no ST elevations or depressions repeat EKG was obtained as initial EKG was read by computer as "acute AL" despite no clear ST elevations or depressions, repeat EKG was done at 2251, showed sinus bradycardia, normal intervals, normal axis, no significant changes from initial EKG Medical Decision Making - Medical Decision Making Was pt. sent in by a medical professional or institution (, PA, TRANSFORMATION ANALYST, urgent care, hospital, or alf...) When possible be specific @ -No Did you speak to anyone other than the patient for history (EMS, parent, family, police, friend...)? What history was obtained from this source @ -No Did you review nursing and triage notes (agree or disagree)? Why? @ -I reviewed nursing and triage notes Were old charts reviewed (outside hosp., previous admission, EMS record, old EKG, old radiological studies, urgent care reports/EKG's, alf records)? Report findings @ -Medical records were not reviewed Differential Diagnosis (chest pain, altered mental status, abdominal pain women, abdominal pain men, vaginal bleeding, weakness, fever, dyspnea, syncope, headache, dizziness, GI bleed, back pain, seizure, CVA, palpatations, mental health, musculoskeletal)? Differential Dizziness: Benign paroxysmal positional Vertigo, Meniere's disease, otitis media, acoustic neuroma, vertebrobasilar insufficiency, cerebellar stroke, encephalitis, hypovolemic, arrhythmia, coronary artery syndrome, anemia, this is not meant to be an all-inclusive list EKG interpreted by me (3pts min.). @ -As above X-rays interpreted by me (1pt min.). @ -I personally reviewed chest x-ray, I see no evidence of cardiomegaly, consolidations or pleural effusions I agree with radiologist interpretation CT interpreted by me (1pt min.). @ -I personally reviewed CT brain, I see no evidence of hemorrhage or mass effects, personally reviewed CTA see no evidence of dissection or large vessel occlusion, I agree with radiologist interpretation U/S interpreted by me (1pt. min.). @ -None done What testing was considered but not performed or refused? (CT, X-rays, U/S, labs)? Why? @ -None What meds were considered but not given or refused? Why? @ -None Did you discuss the management of the patient with other professionals (professionals i.e. , PA, TRANSFORMATION ANALYST, lab, RT, psych nurse, social media designer, foreign languages department chair, teacher, tax revenue officer, shoe caser)? Give summary @ -No Was smoking cessation discussed for >3mins.? @ -No Was critical care preformed (if so, how long)? @ -No Were there social determinants of health that impacted care today? How? (Homelessness, low income, unemployed, alcoholism, drug addiction, transportation, low edu. Level, literacy, decrease access to med. care, shelter, rehab)? @ -No Was there de-escalation of care discussed even if they declined (Discuss DNR or withdrawal of care, Hospice)? @ -No What co-morbidities impacted this encounter? (DM, HTN, Smoking, COPD, CAD, Cancer, CVA, ARF, Chemo, Hep., AIDS, mental health diagnosis, sleep apnea, morbid obesity)? @ DM Was patient admitted / discharged? Hospital course, mention meds given and route, prescriptions, significant lab abnormalities, going to OR and other pertinent info. @Discharged -this is a pleasant 64-year-old gentleman with, hx DM, otherwise healthy, presenting today for dizziness with concerns for low heart rate.Vital signs within acceptable limits on arrival, heart rate 51, the patient states that his resting heart rate does typically go between 50s and 60s. Initial EKG and brought to myself was read by computer as "acute AL" however upon review by myself does not appear to show acute ST elevations or other signs of ischemia, repeat EKG appears unchanged without a similar reading. Neurologic exam was benign, patient has fatigable leftward nystagmus. He has no truncal instability or cerebellar signs on exam, I suspect his dizziness is peripheral in nature, such as BPPV, however will obtain cardiac workup in addition to CT brain CTA. Patient will be given Antivert and reassess. Patient and agreeable plan of care. Labs and imaging reviewed. Grossly within normal limits. Abnormal values not concerning for acute pathology related to presenting complaint. On reassessment patient endorsed improvement of symptoms. I did offer the patient the option to be admitted for observation on telemetry due to his earlier concerns over his low heart rate, however ultimately upon further discussion patient was comfortable discharge home. As patient's symptoms improved, labs and imaging are reassuring and EKG does not show signs of heart block I feel discharge is reasonable and indicated at this time. In my medical judgment there is currently no evidence of an immediate life-threatening or surgical condition. Discharge is therefore indicated at this time. Patient was advised to follow up with his credit administration specialist VENKAT regarding today's visit. Discharge treatment instructions, follow up instructions, and appropriate emergency department return precautions were discussed with the patient and/or medical decision maker. Patient and/or medical decision maker expressed un derstanding of and agreed with the treatment plan, follow up instructions, and emergency department return precaution. All patient's and/or medical decision maker's questions were answered. The patient was advised that a small risk still exists that a serious condition could develop and was therefore instructed to return to the ED for any changes in symptoms, persistent symptoms, inability to obtain proper follow-up or for any further concerns. Patient received verbal and written instructions for this condition. Undiagnosed new problem with uncertain prognosis? @ -No Drug Therapy requiring intensive monitoring for toxicity (Heparin, Nitro, Insulin, Cardizem)? @ -No Were any procedures done? @ -No Diagnosis/symptom? dizziness Acute, or Chronic, or Acute on Chronic? @ acute Uncomplicated (without systemic symptoms) or Complicated (systemic symptoms)? @uncomplicated Side effects of treatment? @ -No Exacerbation, Progression, or Severe Exacerbation? @ -No Poses a threat to life or bodily function? How? (Chest pain, USA, AL, pneumonia, PE, COPD, DKA, ARF, appy, cholecystitis, CVA, Diverticulitis, Homicidal, Suicidal, threat to staff... and all critical care pts) @ -No - Lab Data Result diagrams: 02/20/25 23:01 02/20/25 23:01 Lab Results 02/20/25 02/20/25 02/20/25 Range/Units 23:01 23:01 23:01 WBC 5.6 (3.8-10.6) k/uL RBC 4.60 (4.30-5.90) m/uL Hgb 14.2 (13.0-17.5) gm/dL Hct 43.6 (39.0-53.0) % MCV 94.7 (80.0-100.0) fL MCH 31.0 (25.0-35.0) pg MCHC 32.7 (31.0-37.0) g/dL RDW 12.9 (11.5-15.5) % Plt Count 263 (150-450) k/uL MPV 8.2 Neutrophils % 71 % Lymphocytes % 16 % Monocytes % 8 % Eosinophils % 2 % Basophils % 1 % Neutrophils # 3.9 (1.3-7.7) k/uL Lymphocytes # 0.9 L (1.0-4.8) k/uL Monocytes # 0.4 (0-1.0) k/uL Eosinophils # 0.1 (0-0.7) k/uL Basophils # 0.1 (0-0.2) k/uL PT 11.5 (10.0-12.5) sec INR 1.1 (<1.2) APTT 24.5 (22.0-30.0) sec Sodium 137 (137-145) mmol/L Potassium 4.3 (3.5-5.1) mmol/L Chloride 99 (98-107) mmol/L Carbon Dioxide 29 (22-30) mmol/L Anion Gap 9 mmol/L BUN 15 (9-20) mg/dL Creatinine 1.10 (0.66-1.25) mg/dL Est GFR (CKD-EPI)AfAm 81 (>60 ml/min/1.73 sqM) Est GFR (CKD-EPI)NonAf 70 (>60 ml/min/1.73 sqM) Glucose 132 H (74-99) mg/dL POC Glucose (mg/dL) (70-110) mg/dL POC Glu Pocket Builder ID Calcium 9.3 (8.4-10.2) mg/dL Magnesium (1.6-2.3) mg/dL Total Bilirubin 0.6 (0.2-1.3) mg/dL AST 38 (17-59) U/L ALT 55 H (4-49) U/L Alkaline Phosphatase 86 (38-126) U/L Troponin I (0.000-0.034) ng/mL Total Protein 7.0 (6.3-8.2) g/dL Albumin 4.2 (3.5-5.0) g/dL 02/20/25 02/21/25 02/21/25 Range/Units 23:01 00:02 23:01 WBC (3.8-10.6) k/uL RBC (4.30-5.90) m/uL Hgb (13.0-17.5) gm/dL Hct (39.0-53.0) % MCV (80.0-100.0) fL MCH (25.0-35.0) pg MCHC (31.0-37.0) g/dL RDW (11.5-15.5) % Plt Count (150-450) k/uL MPV Neutrophils % % Lymphocytes % % Monocytes % % Eosinophils % % Basophils % % Neutrophils # (1.3-7.7) k/uL Lymphocytes # (1.0-4.8) k/uL Monocytes # (0-1.0) k/uL Eosinophils # (0-0.7) k/uL Basophils # (0-0.2) k/uL PT (10.0-12.5) sec INR (<1.2) APTT (22.0-30.0) sec Sodium (137-145) mmol/L Potassium (3.5-5.1) mmol/L Chloride (98-107) mmol/L Carbon Dioxide (22-30) mmol/L Anion Gap mmol/L BUN (9-20) mg/dL Creatinine (0.66-1.25) mg/dL Est GFR (CKD-EPI)AfAm (>60 ml/min/1.73 sqM) Est GFR (CKD-EPI)NonAf (>60 ml/min/1.73 sqM) Glucose (74-99) mg/dL POC Glucose (mg/dL) 134 H (70-110) mg/dL POC Glu Pocket Builder ID Basil Wilfredo Calcium (8.4-10.2) mg/dL Magnesium 2.2 (1.6-2.3) mg/dL Total Bilirubin (0.2-1.3) mg/dL AST (17-59) U/L ALT (4-49) U/L Alkaline Phosphatase (38-126) U/L Troponin I <0.012 (0.000-0.034) ng/mL Total Protein (6.3-8.2) g/dL Albumin (3.5-5.0) g/dL Disposition Clinical Impression: Dizziness Disposition: HOME SELF-CARE Condition: Good Instructions (If sedation given, give patient instructions): Dizziness (ED) Additional Instructions: Every disease is a spectrum and a small chance still exists that a serious condition could develop, for this reason, please monitor yourself closely for new, changing or worsening symptoms, symptoms that persist beyond 48 hours, chest pain or difficulty in breathing, severe headache, changes in vision, numbness or weakness, fever, inability to tolerate/keep down fluids or your medications, inability to follow up with outpatient providers as instructed and should you experience these symptoms or should you have any further concerns for your wellbeing please return to the ED or call 911 immediately. Please follow-up with your credit administration specialist within the next 48 hours. Please drink plenty of fluids and get plenty of rest. PLEASE call your primary care physician as soon as possible to arrange / discuss plan for followup appointment. Appointment in the next 1-3 days is strongly encouraged if possible. PLEASE let us know here before you leave if there is anything further we can do to be of any assistance. Take care and feel Better! Prescriptions: Meclizine [Antivert] 25 mg PO TID #20 tab Is patient prescribed a controlled substance at d/c from ED?: No Referrals: Vania Gonzalez MD [Primary Care Provider] - 1-2 days
[2025-02-21] MEDS: SODIUM CHLORIDE 0.9% 1,000 ML IV STA (00:01)
[2025-02-21] MEDS: MECLIZINE 12.5 MG TAB PO STA ×2 (00:01→03:12)
[2025-02-21 00:03] LABS: Glucose,Whole Blood 134 mg/dL (70-110)
--- NOTE | 2025-02-21 01:36 | CT ---
EXAM: CT Angiography Head With Intravenous Contrast CLINICAL HISTORY: ITS.REASON CT Reason: dizziness, falling towards right TECHNIQUE: Axial computed tomographic angiography images of the head with intravenous contrast. CTDI is 31.2 mGy and DLP is 31.2 mGy-cm. This CT exam was performed using one or more of the following dose reduction techniques: automated exposure control, adjustment of the mA and/or kV according to patient size, and/or use of iterative reconstruction technique. MIP reconstructed images were created and reviewed. COMPARISON: No relevant prior studies available. FINDINGS: Right internal carotid artery: No significant stenosis. No aneurysm. Right anterior cerebral artery: No significant stenosis. No aneurysm. Right middle cerebral artery: No significant stenosis. No aneurysm. Right posterior cerebral artery: No significant stenosis. No aneurysm. Right vertebral artery: Unremarkable. Left internal carotid artery: No significant stenosis. No aneurysm. Left anterior cerebral artery: No significant stenosis. No aneurysm. Left middle cerebral artery: No significant stenosis. No aneurysm. Left posterior cerebral artery: No significant stenosis. No aneurysm. Left vertebral artery: Unremarkable. Basilar artery: No significant stenosis. No aneurysm. IMPRESSION: No significant stenosis. EXAM: CT Angiography Neck With Intravenous Contrast CLINICAL HISTORY: ITS.REASON CT Reason: dizziness, falling towards right TECHNIQUE: Routine carotid CT angiography protocol was performed with intravenous contrast. NASCET criteria using the distal ICAs for comparison were used for evaluation of stenoses. CTDI is 12.2 mGy and DLP is 614.4 mGy-cm. This CT exam was performed using one or more of the following dose reduction techniques: automated exposure control, adjustment of the mA and/or kV according to patient size, and/or use of iterative reconstruction technique. MIP reconstructed images were created and reviewed. COMPARISON: None. FINDINGS: VASCULATURE: Right common carotid artery: No significant stenosis. No dissection. Right internal carotid artery: No significant stenosis. No dissection. Right vertebral artery: No significant stenosis. No dissection. Left common carotid artery: No significant stenosis. No dissection. Left internal carotid artery: No significant stenosis. No dissection. Left vertebral artery: No significant stenosis. No dissection. NECK: Lung apices: Clear. CAROTID STENOSIS REFERENCE USING NASCET CRITERIA: % ICA stenosis = (1 - narrowest ICA diameter/diameter of distal cervical ICA) x 100. Mild - <50% stenosis. Moderate - 50-69% stenosis. Severe - 70-94% stenosis. Near occlusion - 95-99% stenosis. Occluded - 100% stenosis. IMPRESSION: No significant stenosis.
--- NOTE | 2025-02-21 01:58 | CT ---
EXAM: CT Head Without Intravenous Contrast CLINICAL HISTORY: ITS.REASON CT Reason: dizziness, falling towards right TECHNIQUE: Axial computed tomography images of the head/brain without intravenous contrast. CTDI is 48.8 mGy and DLP is 1204 mGy-cm. This CT exam was performed using one or more of the following dose reduction techniques: automated exposure control, adjustment of the mA and/or kV according to patient size, and/or use of iterative reconstruction technique. COMPARISON: No relevant prior studies available. FINDINGS: Brain: No hemorrhage or mass effect. Ventricles: No hydrocephalus. Bones/joints: Unremarkable. Soft tissues: Unremarkable. Sinuses: No air fluid level. Mastoid air cells: Clear. IMPRESSION: No acute hemorrhage, hydrocephalus, or mass effect.
[2025-02-21 03:15] VITALS: BP 111/73; PULSE 55; RESP 18; TEMP 97.7
--- NOTE | 2025-02-21 05:17 | XR ---
EXAM: XR Chest, 2 Views CLINICAL HISTORY: dizziness TECHNIQUE: Frontal and lateral views of the chest. COMPARISON: 11/14/19 FINDINGS: Lungs: Unremarkable. No consolidation. Pleural space: Unremarkable. Mediastinum: Unremarkable. Normal mediastinal contour. Bones/joints: No acute findings. Old right rib fractures IMPRESSION: No acute findings or substantial change.
== END 2025-02-21 03:21 | disposition home or self-care (01) ==
LOC: EC 22:23
DX: R42 Dizziness and giddiness (principal); R00.1 Bradycardia, unspecified; E11.9 Type 2 diabetes mellitus without complications; Z79.84 Long term (current) use of oral hypoglycemic drugs; Z88.0 Allergy status to penicillin; Z91.030 Bee allergy status
CPT/HCPCS: 99285; 96360; 36415; 93005; 80053; 83735; 84484; 85025; 85610; 85730; 71046; 70496; 70450; 70498; Q9967

== ENCOUNTER → 2025-04-11 | Outpatient (CLI) | payer MEDICARE ==
--- NOTE | 2025-04-12 06:59 | MR ---
EXAMINATION TYPE: MR brain wo/w con DATE OF EXAM: 04/11/2025 COMPARISON: CT brain February 21, 2025. MRI IAC November 18, 2023. HISTORY: dizziness, unsteady. TECHNIQUE: Multiplanar, multisequence images of the brain and brainstem is performed without and with IV contras t, utilizing 8 mL intravenous Gadobutrol . FINDINGS: Diffusion weighted images demonstrate no evidence of a recent infarct or other diffusion ab normality. There is no extra-axial fluid collection. The ventricular system and cisternal spaces ar e normal in size and appearance. The brain volume is age appropriate. A few scattered small foci of T2 hyperintensity are seen throughout the white matter bilaterally. Approximately 6-10 scattered lesi ons are present. The lesions are nonspecific in appearance and distribution. Midline structures demonstrate normal morphology. The craniocervical junction appears within normal limits. Post contrast images demonstrate no abnormal enhancement. The dural venous sinuses appear pa tent. The visualized sinuses are clear and the globes are intact. No suspicious opacification of mast oid air cells is present bilaterally. IMPRESSION: Stable Minimal nonspecific white matter changes favors product of chronic small vessel is chemic change. No suspicious enhancement or enhancing masses identified. [facility], , 04/12/2025 6:57 AM
== END | disposition home or self-care (01) ==
LOC: RADMRIMAIN 19:15
PROVIDERS: ATTEND Otolaryngology Otolaryngology/Facial Plastic Surgery
DX: R90.82 White matter disease, unspecified (principal); R42 Dizziness and giddiness
CPT/HCPCS: 70553; A9585

== ENCOUNTER 2025-05-14 07:34 | Day surgery (SDC) | payer MEDICARE ==
[2025-05-10 15:57] VITALS: BMI 26.4
[2025-05-14] MEDS: SODIUM CHLORIDE 0.9% 500 ML 500 ML IV ONE (07:52)
[2025-05-14] MEDS: SODIUM CHLORIDE 0.9% 1,000 ML IV SCH (07:52)
[2025-05-14 08:05] VITALS: BP 118/73; RESP 16; TEMP 97.3
[2025-05-14 08:11] LABS: Glucose,Whole Blood 105 mg/dL (70-110)
--- NOTE | 2025-05-14 14:07 | P.EPPROC ---
- EP Procedure Note Electrophysiology Procedure Note: Diagnosis Recurrent presyncope 12 EKG shows sinus rhythm normal [place] interval, normal QT interval Tilt table test per protocol Baseline blood pressure 114/72 mmHg Patient was tilted upright on maculas 70 degrees per protocol Heart rates remained in the 50s and 60s Blood pressure in the normal range No evidence for neurocardiogenic syncope No evidence for dysautonomia Impression Normal twelve-lead EKG Normal heart rate and blood pressure response to upright tilting
== END 2025-05-14 10:35 | disposition home or self-care (01) ==
LOC: CATHEP 07:34
PROVIDERS: ATTEND Internal Medicine Clinical Cardiac Electrophysiology
DX: R55 Syncope and collapse (principal)
CPT/HCPCS: 93660

== ENCOUNTER → 2025-05-26 | Outpatient (CLI) | payer MEDICARE ==
[2025-05-26 15:20] LABS: Creatine Kinase 197 U/L (35-257); Rheumatoid Factor, Qnt <15 IU/mL (0-15); Vitamin B12 692.0 pg/mL (200.0-944.0)
[2025-05-28 14:46] LABS: Lyme IgG/IgM .356
[2025-05-28 17:50] LABS: Anti-Smith Ab Interp Negative (Negative)
== END | disposition home or self-care (01) ==
LOC: LABWHC1 08:27
PROVIDERS: ATTEND Psychiatry & Neurology Neurology
DX: G62.9 Polyneuropathy, unspecified (principal); M25.50 Pain in unspecified joint
CPT/HCPCS: 36415; 82550; 82607; 84165; 85652; 86038; 86235; 86431; 86618